=== PATIENT | female | born 2000 | race Hispanic/Latino ===

== ENCOUNTER 2022-02-21 12:30 | Emergency (ER) | payer OTHER ==
[~2022-02-21] VITALS: Ht 154.9 cm; Wt 52.0 kg
[2022-02-21] MEDS ORDERED: PRENTAB53 PO (12:39)
[2022-02-21 13:16] LABS: BASO # 0.1 10^3/uL (0.0-0.2); BASO % 0.6 % (0.0-1.0); EOS # 0.1 10^3/uL (0.0-0.5); EOS % 1.2 % (0.0-3.0); HEMATOCRIT 33.2 % (36.0-47.0); HEMOGLOBIN 11.3 g/dl (12.0-15.5); LYMPH # 1.7 10^3/uL (1.5-5.0); LYMPH % 18.3 % (24.0-44.0); MEAN CORPUSCULAR HEMOGLOBIN 31.7 pg (27.0-33.0); MONO # 0.7 10^3/uL (0.0-0.8); MONO % 7.8 % (2.0-8.0); NEUTROPHILS # 6.4 10^3/uL (1.5-8.5); NEUTROPHILS % 71.3 % (36.0-66.0); PLATELET COUNT, AUTOMATED 226 10^3/uL (150-450); RED BLOOD COUNT 3.57 10^6/uL (4.00-5.40)
[2022-02-21 13:33] LABS: APPEARANCE, URINE HAZY (CLEAR); BACTERIA, URINE AUTO NEGATIVE (NEGATIVE); BILIRUBIN, URINE AUTO NEGATIVE (NEGATIVE); BLOOD, URINE BLOOD NEGATIVE (NEGATIVE); COLOR, URINE YELLOW (YELLOW); GLUCOSE, URINE (UA) AUTO NEGATIVE (NEGATIVE); KETONE, URINE AUTO NEGATIVE (NEGATIVE); LEUKOCYTE ESTERASE, URINE AUTO NEGATIVE (NEGATIVE); MUCUS, URINE SMALL (NEGATIVE); NITRITE, URINE AUTO NEGATIVE (NEGATIVE); PROTEIN, URINE AUTO NEGATIVE (NEGATIVE); RBC, URINE AUTO 0 /HPF (0-3); SPECIFIC GRAVITY URINE AUTO 1.012 (1.002-1.035); SQUAMOUS EPITHELIAL CELL UR AU 1 /HPF (0-6); UROBILINOGEN, URINE AUTO 0.2 mg/dL (0.0-2.0); WBC, URINE AUTO 1 /HPF (0-3)
[2022-02-21 13:46] LABS: BLOOD UREA NITROGEN 5 MG/DL (7-18); CALCIUM LEVEL 9.2 MG/DL (8.5-10.1); CARBON DIOXIDE LEVEL 27 MEQ/L (21-32); CHLORIDE LEVEL 103 MEQ/L (98-107); GLOMERULAR FILTRATION RATE > 60.0 (>60); GLUCOSE, FASTING 84 MG/DL (70-100); POTASSIUM SERUM 3.7 MEQ/L (3.5-5.1); SODIUM LEVEL 135 MEQ/L (136-145)
[2022-02-21 15:05] VITALS: BP 109/56
[2022-02-21 15:28] LABS: ALBUMIN 3.4 GM/DL (3.2-5.2); ALT/SGPT 16 U/L (12-78); BILIRUBIN,DIRECT < 0.1 MG/DL (0.0-0.2); BILIRUBIN,TOTAL 0.4 MG/DL (0.2-1.0); TOTAL PROTEIN 7.3 GM/DL (6.4-8.2)
== END 2022-02-21 15:24 | disposition home or self-care (01) ==
LOC: M ED 12:30
DX: R10.811 Right upper quadrant abdominal tenderness (principal)

== ENCOUNTER 2022-04-18 02:18 | Outpatient (CLI) | payer OTHER ==
[~2022-04-18] VITALS: Ht 154.9 cm; Wt 61.4 kg
[~2022-04-18 02:18] MED LIST: PRENTAB53 PO
[2022-04-18 02:37] VITALS: BP 115/79
[2022-04-18] MEDS ORDERED: FERR325T3 PO (02:39)
[2022-04-18] MEDS ORDERED: HOME MED LIST COMPLETE! XX SCH (02:40)
[2022-04-18 03:25] VITALS: BP 117/67
== END 2022-04-18 03:35 | disposition home or self-care (01) ==
LOC: M LDO 02:18
PROVIDERS: ATTEND Obstetrics & Gynecology
DX: Z34.93 Encounter for supervision of normal pregnancy, unspecified, third trimester (principal)
CPT/HCPCS: 59025; 81000; 81015; G0463

== ENCOUNTER 2022-05-17 00:30 | Outpatient (CLI) | payer OTHER ==
[~2022-05-17] VITALS: Ht 154.9 cm; Wt 62.6 kg
[~2022-05-17 00:30] MED LIST changes: +FERR325T3 PO
[2022-05-17 00:52] VITALS: BP 120/58
[2022-05-17] MEDS ORDERED: FAMO20TA PO (00:56)
[2022-05-17] MEDS ORDERED: HOME MED LIST COMPLETE! XX SCH (01:00)
[2022-05-17 02:20] VITALS: BP 113/56
[2022-05-17 02:22] LABS: APPEARANCE, URINE MANUAL CLEAR (CLEAR); COLOR, URINE MANUAL YELLOW (YELLOW)
[2022-05-17 02:23] LABS: GLUCOSE, URINE (UA) MANUAL NEGATIVE (NEGATIVE); PROTEIN, URINE MANUAL NEGATIVE (NEGATIVE); SPECIFIC GRAVITY,URINE MANUAL 1.015 (1.002-1.035)
[2022-05-17 02:24] LABS: BILIRUBIN, URINE MANUAL NEGATIVE (NEGATIVE); BLOOD URINE MANUAL NEGATIVE (NEGATIVE); KETONE, URINE MANUAL NEGATIVE (NEGATIVE); LEUKOCYTE ESTERASE, URINE MAN NEGATIVE (NEGATIVE); NITRITE, URINE MANUAL NEGATIVE (NEGATIVE); UROBILINOGEN, URINE MANUAL NORMAL (NORMAL)
[2022-05-17 02:56] LABS: BASO % 0.4 % (0.0-1.0); EOS # 0.2 10^3/uL (0.0-0.5); EOS % 1.9 % (0.0-3.0); HEMOGLOBIN 11.2 g/dl (12.0-15.5); LYMPH # 2.4 10^3/uL (1.5-5.0); LYMPH % 21.4 % (24.0-44.0); MEAN CORPUSCULAR HEMOGLOBIN 32.5 pg (27.0-33.0); MEAN CORPUSCULAR VOLUME 92.8 fl (80.0-96.0); MONO % 8.5 % (2.0-8.0); NEUTROPHILS # 7.6 10^3/uL (1.5-8.5); PLATELET COUNT, AUTOMATED 201 10^3/uL (150-450); RED BLOOD COUNT 3.45 10^6/uL (4.00-5.40); WHITE BLOOD COUNT 11.3 10^3/uL (4.0-10.0)
[2022-05-17 03:33] LABS: ALBUMIN 2.9 GM/DL (3.2-5.2); ALT/SGPT 19 U/L (12-78); BILIRUBIN,TOTAL 0.6 MG/DL (0.2-1.0); BLOOD UREA NITROGEN 9 MG/DL (7-18); CALCIUM LEVEL 8.6 MG/DL (8.5-10.1); CARBON DIOXIDE LEVEL 23 MEQ/L (21-32); CHLORIDE LEVEL 105 MEQ/L (98-107); CREATININE FOR GFR 0.43 MG/DL (0.55-1.30); GLOMERULAR FILTRATION RATE > 60.0 (>60); GLUCOSE, FASTING 91 MG/DL (70-100); POTASSIUM SERUM 3.6 MEQ/L (3.5-5.1); SODIUM LEVEL 136 MEQ/L (136-145); TOTAL PROTEIN 6.6 GM/DL (6.4-8.2)
== END 2022-05-17 03:36 | disposition home or self-care (01) ==
LOC: M LDO 00:30
PROVIDERS: ATTEND Obstetrics & Gynecology
DX: O26.893 Other specified pregnancy related conditions, third trimester (principal); R51.9 Headache, unspecified; R19.7 Diarrhea, unspecified; R22.9 Localized swelling, mass and lump, unspecified; O24.419 Gestational diabetes mellitus in pregnancy, unspecified control; Z3A.31 31 weeks gestation of pregnancy
CPT/HCPCS: 36415; 59025; 80053; 81002; 85025; 87086; G0463

== ENCOUNTER → 2022-06-07 | Outpatient (CLI) | payer OTHER ==
[~2022-06-07] MED LIST changes: +FAMO20TA PO
== END ==
LOC: M WHC 14:57
PROVIDERS: ATTEND Advanced Practice Midwife
DX: O24.419 Gestational diabetes mellitus in pregnancy, unspecified control (principal); Z3A.32 32 weeks gestation of pregnancy

== ENCOUNTER 2022-06-15 14:59 | Outpatient (CLI) | payer OTHER ==
[~2022-06-15] VITALS: Ht 154.9 cm; Wt 65.5 kg
[2022-06-15 15:17] VITALS: BP 112/62
[2022-06-15] MEDS ORDERED: METF-838 PO (15:23)
[2022-06-15] MEDS ORDERED: HOME MED LIST COMPLETE! XX SCH (15:25)
== END 2022-06-15 17:53 | disposition home or self-care (01) ==
LOC: M LDO 14:59
PROVIDERS: ATTEND Advanced Practice Midwife
DX: O47.03 False labor before 37 completed weeks of gestation, third trimester (principal); Z3A.35 35 weeks gestation of pregnancy
CPT/HCPCS: 59025; G0463

== ENCOUNTER 2022-06-22 19:22 | Outpatient (CLI) | payer OTHER ==
[~2022-06-22] VITALS: Ht 154.9 cm; Wt 66.5 kg
[~2022-06-22 19:22] MED LIST changes: +METF-838 PO
[2022-06-22 19:37] VITALS: BP 131/76
[2022-06-22] MEDS ORDERED: HOME MED LIST COMPLETE! XX SCH (19:50)
== END 2022-06-22 20:48 | disposition home or self-care (01) ==
LOC: M LDO 19:22
PROVIDERS: ATTEND Advanced Practice Midwife
DX: O26.893 Other specified pregnancy related conditions, third trimester (principal); R25.2 Cramp and spasm; Z3A.36 36 weeks gestation of pregnancy
CPT/HCPCS: 59025; G0463

== ENCOUNTER 2022-07-03 05:15 | Outpatient (CLI) | payer OTHER ==
[~2022-07-03] VITALS: Ht 154.9 cm; Wt 68.5 kg
[2022-07-03 05:39] VITALS: BP 118/67
[2022-07-03] MEDS ORDERED: HOME MED LIST COMPLETE! XX SCH (05:40)
== END 2022-07-03 06:50 | disposition home or self-care (01) ==
LOC: M LDO 05:15
PROVIDERS: ATTEND Obstetrics & Gynecology
DX: O26.893 Other specified pregnancy related conditions, third trimester (principal); R03.0 Elevated blood-pressure reading, without diagnosis of hypertension; R73.9 Hyperglycemia, unspecified; Z3A.37 37 weeks gestation of pregnancy
CPT/HCPCS: 59025; G0463

== ENCOUNTER → 2022-07-04 | Outpatient (CLI) | payer OTHER | LOC: M RAD 13:07 | PROVIDERS: ATTEND Advanced Practice Midwife | DX: O24.415 Gestational diabetes mellitus in pregnancy, controlled by oral hypoglycemic drugs (principal); Z3A.36 36 weeks gestation of pregnancy ==

== ENCOUNTER 2022-07-06 11:47 | Outpatient (CLI) | payer OTHER ==
[~2022-07-06] VITALS: Ht 154.9 cm; Wt 67.9 kg
[2022-07-06 12:08] VITALS: BP 123/69
[2022-07-06] MEDS ORDERED: HOME MED LIST COMPLETE! XX SCH (12:15)
[2022-07-06 12:45] VITALS: BP 128/59
== END 2022-07-06 12:54 | disposition home or self-care (01) ==
LOC: M LDO 11:47
PROVIDERS: ATTEND Advanced Practice Midwife
DX: O47.1 False labor at or after 37 completed weeks of gestation (principal); O24.419 Gestational diabetes mellitus in pregnancy, unspecified control; Z3A.38 38 weeks gestation of pregnancy
CPT/HCPCS: 59025; G0463

== ENCOUNTER 2022-07-12 06:58 | Inpatient (IN) | payer OTHER ==
[2022-07-12] VITALS (17 sets, daily range): BP systolic 121–158; BP diastolic 63–100
[~2022-07-12] VITALS: Ht 154.9 cm; Wt 69.1 kg
[2022-07-12] MEDS ORDERED: LACTATED RINGER'S 1000 ML IV STA (07:51)
[2022-07-12] MEDS ORDERED: PENICILLIN G POTASSIUM 5 MU IV 5 MU in D5W MINI-BAG PLUS 100 ML IV STA ×2 (07:51→17:58)
[2022-07-12] MEDS ORDERED: OXYTOCIN DRIP 30 UNITS in IV 1 EA IV PRN (07:55)
[2022-07-12] MEDS ORDERED: TRANEXAMIC ACID INJection 1,000 MG in NS 100 ML IV PRN (07:55)
[2022-07-12] MEDS ORDERED: LIDOCAINE 1% MDV 20ML VIAL INFIL PRN (07:55)
[2022-07-12] MEDS ORDERED: METHYLERGONOVINE MALEATE 0.2 MG/ML VIAL (J2210) IM PRN (07:55)
[2022-07-12] MEDS ORDERED: CARBOPROST TROMETHAMINE 250 MCG/ML AMP IM PRN (07:55)
[2022-07-12 08:26] LABS: HEMOGLOBIN 13.1 g/dl (12.0-15.5); MEAN CORPUSCULAR HEMOGLOBIN 31.8 pg (27.0-33.0); MEAN CORPUSCULAR HGB CONC 34.5 g/dl (32.0-36.5); MEAN CORPUSCULAR VOLUME 92.2 fl (80.0-96.0); PLATELET COUNT, AUTOMATED 179 10^3/uL (150-450); RED BLOOD COUNT 4.12 10^6/uL (4.00-5.40); WHITE BLOOD COUNT 8.8 10^3/uL (4.0-10.0)
[2022-07-12] MEDS: miSOPROStol 50MCG 1/2 TABLET PO SCH ×2 (09:17→14:01)
[2022-07-12] MEDS ORDERED: PEN G POT 3,000,000 UNIT/50 ML 3,000,000 UNIT in IV 1 EA IV SCH ×2 (11:55→22:00)
[2022-07-12] MEDS ORDERED: OXYTOCIN DRIP 30 UNITS in IV 1 EA IV SCH (18:55)
[2022-07-12] MEDS ORDERED: NALOXONE INJ 0.4MG/1ML VIAL IV PRN (20:10)
[2022-07-12] MEDS ORDERED: diphenhydrAMINE 50MG/ML VIAL IV PRN (20:10)
[2022-07-12] MEDS ORDERED: ePHEDrine SULFATE 25 MG/5 ML(5MG/ML) SYRINGE IVP PRN (20:10)
[2022-07-12] MEDS ORDERED: EPIDURAL/PCA KEYS XX PRN (20:10)
[2022-07-12] MEDS ORDERED: FENTANYL/ROPIVACAINE/NACL BAG 100 ML EPIDURAL SCH (20:10)
[2022-07-12] MEDS ORDERED: LR 500 ML IV PRN (20:10)
[2022-07-12] MEDS ORDERED: ONDANSETRON 4MG 2ML VIAL IV PRN (20:10)
[2022-07-12] MEDS: LR 1,000 ML IV SCH (21:11)
[2022-07-13] VITALS (11 sets, daily range): BP systolic 109–141; BP diastolic 57–81
[2022-07-13 02:51] LABS: CORD GAS ABE A -5.4; CORD GAS HCO3 A 22.6 MEQ/L; CORD GAS O2 SAT A 50.7 %; CORD GAS PCO2 A 54.5 mmHg; CORD GAS PH A 7.236 UNITS; CORD GAS PO2 A 24.7 mmHg; CORD GAS TCO2 A 24.3 MEQ/L
[2022-07-13 02:53] LABS: CORD GAS ABE V -4.7; CORD GAS HCO3 V 20.3 MEQ/L; CORD GAS O2 SAT V 78.9 %; CORD GAS PCO2 V 37.7 mmHg; CORD GAS PH V 7.35 UNITS; CORD GAS SBC V 20.2 MEQ/L; CORD GAS TCO2 V 21.5 MEQ/L
[2022-07-13] MEDS: LR 1,000 ML IV SCH ×2 (02:55→10:55)
[2022-07-13] MEDS ORDERED: ACETAMINOPHEN TAB 650MG DOSE (2X325MG) PO PRN (03:10)
[2022-07-13] MEDS ORDERED: MOM 30ML SUSPENSION UDC PO PRN (03:10)
[2022-07-13] MEDS ORDERED: IBUPROFEN 600MG TAB PO PRN (03:10)
[2022-07-13] MEDS ORDERED: DIBUCAINE 1% OINTMENT 30GM TOP PRN (03:10)
[2022-07-13] MEDS ORDERED: RHOGAM 300 MCG (1500 IU) INJ (J2790) IM SCH (03:10)
[2022-07-13] MEDS ORDERED: OXYTOCIN DRIP 30 UNITS in IV 1 EA IV SCH (03:10)
[2022-07-13] MEDS ORDERED: METHYLERGONOVINE MALEATE 0.2 MG TAB PO PRN (03:10)
[2022-07-13] MEDS ORDERED: ANUSOL HC CREAM 30GM TOP PRN (03:10)
[2022-07-13] MEDS ORDERED: DOCUSATE SODIUM 100MG CAPSULE PO PRN (03:10)
[2022-07-13] MEDS: PRENATAL VITAMINS CHEWABLE TABLET PO SCH (07:23)
[2022-07-13] MEDS: IBUPROFEN 800 MG TAB PO PRN (07:24)
[2022-07-13] MEDS: ACETAMINOPHEN 500 MG TAB PO PRN (14:18)
[2022-07-14] MEDS: ACETAMINOPHEN 500 MG TAB PO PRN (02:40)
[2022-07-14 06:00] VITALS: BP 124/59
[2022-07-14] MEDS: PRENATAL VITAMINS CHEWABLE TABLET PO SCH (09:19)
[2022-07-14] MEDS: IBUPROFEN 800 MG TAB PO PRN ×2 (09:20→21:26)
[2022-07-14 18:00] VITALS: BP 125/63
[2022-07-15] MEDS: IBUPROFEN 800 MG TAB PO PRN (05:33)
[2022-07-15 06:00] VITALS: BP 121/60
[2022-07-15] MEDS ORDERED: MEASLES,MUMPS,RUBELLA VACCINE INJ (MMR-II) (90707) SC.IMMUN ONE (09:00)
[2022-07-15] MEDS: PRENATAL VITAMINS CHEWABLE TABLET PO SCH (09:00)
== END 2022-07-15 11:27 | disposition home or self-care (01) | DRG 807 ==
LOC: M LDI 06:58 → M OBS 07-13 04:42
PROVIDERS: ADMIT Advanced Practice Midwife; ATTEND Obstetrics & Gynecology
PROC: 3E0P7GC Introduction of Other Therapeutic Substance into Female Reproductive, Via Natural or Artificial Opening (ICD-10-PCS; 2022-07-12)
PROC: 10E0XZZ Delivery of Products of Conception, External Approach (ICD-10-PCS; principal; 2022-07-13)
PROC: 0HQ9XZZ Repair Perineum Skin, External Approach (ICD-10-PCS; 2022-07-13)
DX: O24.425 Gestational diabetes mellitus in childbirth, controlled by oral hypoglycemic drugs (principal); Z37.0 Single live birth; Z3A.39 39 weeks gestation of pregnancy; O99.824 Streptococcus B carrier state complicating childbirth; O69.81X0 Labor and delivery complicated by cord around neck, without compression, not applicable or unspecified; O70.0 First degree perineal laceration during delivery